=== PATIENT | male | born 1955 | race Caucasian/White ===

== ENCOUNTER 2024-09-13 05:12 | Day surgery (SDC) | payer MEDICARE, OTHER ==
[2024-09-13] MEDS ORDERED: Lidocaine 2% 20 ML MDV NERVRT ONE (05:13)
[2024-09-13] MEDS ORDERED: Dextrose 5%-0.45% NaCl 1,000 ML IV ONE (05:13)
[2024-09-13] MEDS ORDERED: Propofol 200 MG/20 ML SDV IV ONE (05:13)
[2024-09-13] MEDS ORDERED: Lactated Ringers 1,000 ML IV ONE (05:13)
[2024-09-13] MEDS ORDERED: Dextrose 5%-0.45% NaCl 1,000 ML IV SCH (05:30)
[2024-09-13] MEDS ORDERED: Propofol 200 MG/20 ML SDV ONE (06:12)
[2024-09-13] MEDS ORDERED: Midazolam 1 MG/ML 2 ML SDV ONE (06:12)
[2024-09-13] MEDS: Lactated Ringers 1,000 ML IV SCH (06:15)
[2024-09-13] MEDS ORDERED: Etomidate 2 MG/ML 10 ML SDV ONE (06:22)
[2024-09-13 07:38] VITALS: BP 107/60; PULSE 61
== END 2024-09-13 08:02 | disposition home or self-care (01) ==
LOC: DL.ENDO 05:12
PROVIDERS: ATTEND Internal Medicine Gastroenterology
DX: K63.5 Polyp of colon (principal); D64.9 Anemia, unspecified; I25.10 Atherosclerotic heart disease of native coronary artery without angina pectoris; I50.9 Heart failure, unspecified; E66.09 Other obesity due to excess calories; Z88.8 Allergy status to other drugs, medicaments and biological substances; Z87.891 Personal history of nicotine dependence
CPT/HCPCS: 45380; 88305; J2003; J2704; J7120; S5010; 00811